=== PATIENT | female | born 1965 | race Caucasian/White ===

== ENCOUNTER 2020-08-14 07:00 | Inpatient (IN) | payer BC ==
[~2020-08-14] VITALS: Ht 167.6 cm; Wt 91.6 kg
[~2020-08-14 07:00] MED LIST: BUTA1CAP29 PO; PROM25SU32 RC
--- NOTE | 2020-08-14 07:28 | PHYS DOC ---
Past History Past Medical History: Arthritis, Constipation, GERD, High Cholesterol, Migraines Past Surgical History: Appendectomy, , Other Additional Past Surgical Histo: THYROIDECTOMY Alcohol Use: None Drug Use: None Adult General Chief Complaint Chief Complaint: MULTIPLE COMPLAINTS [facility] HPI Patient is a 55-year-old female who presents for symptomatic COVID-19 infection. She tested positive roughly 12 days ago. States she has been symptomatic since 2 days prior being tested. She reports initially having URI-like symptoms but this progressed to having nausea with several episodes of nonbloody nonbilious emesis since onset. Patient reports for past 48 hours she has been too nauseous to eat or drink, anytime she is attempted to do so it is it exacerbated her nausea and caused emesis. She reports having roughly 4 episodes of emesis in past 48-hour timeframe. She lives home alone and does not have any outside support assisting her at this time. She states she has been fatigued and with decreased p.o. intake past 48 hours has been more physically weak and dizzy especially with position changes than her typical baseline. She denies any falls but reports she has felt presyncopal and cannot take care of herself at present. Outside of COVID-19 infection, patient reports she has been afebrile, no other known ingestion, trauma, inciting event, no chest pain, no excessive shortness of breath, no productive cough, no urinary symptoms or other neurologic abnormalities reported Review of Systems Review of Systems Fourteen body systems of review of systems have been reviewed. See HPI for pertinent positives and negative responses, other chavis all other systems are negative, non-pertinent or non-contributory Allergies Allergies Allergies Coded Allergies Type Severity Reaction Last Updated Verified Opioids - Morphine Analogues Adverse Reaction Mild NAUSEA AND VOMITING 02/02/16 Yes Penicillins Adverse Reaction Unknown RASH 02/02/16 No Physical Exam Physical Exam Constitutional: Well developed, well nourished, no acute distress, non-toxic appearance. HENT: Normocephalic, atraumatic, bilateral external ears normal, oropharynx moist, no oral exudates, nose normal. Eyes: PERRLA, EOMI, conjunctiva normal, no discharge. Neck: Normal range of motion, no tenderness, supple, no stridor. Cardiovascular: Heart rate regular, sinus rhythm, no murmurs rubs or gallops Lungs & Thorax: Bilateral breath sounds clear to auscultation Abdomen: Bowel sounds normal, soft, no tenderness, no masses, no pulsatile masses. Nonsurgical abdomen, no peritoneal signs Skin: Warm, dry, no erythema, no rash. Back: No tenderness, no CVA tenderness. Extremities: No tenderness, no cyanosis, no clubbing, ROM intact, no edema. Neurologic: Alert and oriented X 3, grossly normal motor & sensory function, no focal deficits noted. Psychologic: Affect normal, judgement normal, mood normal. Current Patient Data Vital Signs Vital Signs Date Time Temp Pulse Resp B/P (MAP) Pulse Ox O2 Delivery O2 Flow Rate FiO2 08/14/20 07:16 99.0 98 18 101/66 (78) 92 Lab Results Laboratory Tests Test 08/14/20 07:43 08/14/20 11:30 White Blood Count 4.7 x10^3/uL (4.0-11.0) Red Blood Count 4.51 x10^6/uL (3.50-5.40) Hemoglobin 12.5 g/dL (12.0-15.5) Hematocrit 39.1 % (36.0-47.0) Mean Corpuscular Volume 87 fL (79-100) Mean Corpuscular Hemoglobin 28 pg (25-35) Mean Corpuscular Hemoglobin Concent 32 g/dL (31-37) Red Cell Distribution Width 13.1 % (11.5-14.5) Platelet Count 232 x10^3/uL (140-400) Neutrophils (%) (Auto) 69 % (31-73) Lymphocytes (%) (Auto) 23 % (24-48) Monocytes (%) (Auto) 8 % (0-9) Eosinophils (%) (Auto) 0 % (0-3) Basophils (%) (Auto) 0 % (0-3) Neutrophils # (Auto) 3.2 x10^3uL (1.8-7.7) Lymphocytes # (Auto) 1.1 x10^3/uL (1.0-4.8) Monocytes # (Auto) 0.4 x10^3/uL (0.0-1.1) Eosinophils # (Auto) 0.0 x10^3/uL (0.0-0.7) Basophils # (Auto) 0.0 x10^3/uL (0.0-0.2) Sodium Level 137 mmol/L (136-145) Potassium Level 3.3 mmol/L (3.5-5.1) Chloride Level 100 mmol/L (98-107) Carbon Dioxide Level 26 mmol/L (21-32) Anion Gap 11 (6-14) Blood Urea Nitrogen 12 mg/dL (7-20) Creatinine 1.0 mg/dL (0.6-1.0) Estimated GFR (Cockcroft-Gault) 57.8 BUN/Creatinine Ratio 12 (6-20) Glucose Level 95 mg/dL (70-99) Calcium Level 8.6 mg/dL (8.5-10.1) Total Bilirubin 0.3 mg/dL (0.2-1.0) Aspartate Amino Transf (AST/SGOT) 27 U/L (15-37) Alanine Aminotransferase (ALT/SGPT) 50 U/L (14-59) Alkaline Phosphatase 146 U/L (46-116) Troponin I Quantitative < 0.017 ng/mL (0-0.055) < 0.017 ng/mL (0-0.055) Total Protein 7.2 g/dL (6.4-8.2) Albumin 3.0 g/dL (3.4-5.0) Albumin/Globulin Ratio 0.7 (1.0-1.7) EKG EKG EKG ordered and interpreted by myself at 0830 hrs. as sinus rhythm at 78 bpm, prolonged QRS at 124 and prolonged QTC at 483 with all other intervals unremarka ble, left axis deviation, right bundle branch block present, no STEMI Radiology/Procedures Radiology/Procedures AP portable chest radiograph 08/14/2020 Clinical History: Shortness of breath. An AP erect portable digital radiograph of the chest was obtained. No previous studies are available for comparison. The cardiac silhouette is borderline enlarged. The thoracic aorta is mildly tortuous. Patchy areas of subsegmental atelectasis and/or infiltrate are seen involving both lower lobes, left greater than right. No pneumothorax or pleural effusion is seen. Degenerative changes are seen involving the thoracic spine and both shoulders. IMPRESSION: Patchy bilateral lower lobe subsegmental atelectasis and/or infiltrate. Electronically signed by: Amado Carrero MD (08/14/2020 8:01 AM) [id number] Heart Score HEART Score for Chest Pain: HEART Score for Chest Pain Response (Comments) Value History Slighlty/Non-Suspicious 0 ECG Normal 0 Age >45 - < 65 1 Risk Factors 1 or 2 Risk Factors 1 Troponin < Normal Limit 0 Total 2 Risk Factors: Risk Factors: DM, Current or recent (<one month) smoker, HTN, HLP, family history of CAD, obesity. Risk Scores: Risk Factors: DM, Current or recent (<one month) smoker, HTN, HLP, family history of CAD, obesity. Course & Med Decision Making Course & Med Decision Making Pertinent Labs and Imaging studies reviewed. (See chart for details) No obvious emergent and/or surgical pathology found today. With that said, patient appears to be symptomatic from COVID-19 infection. Patient unable to safely ambulate and care for self at home as a result and currently does not have regular care at home to assist through personal deficits. Unsafe to disposition home; at minimum plan admission for ongoing supportive care and IV fluid rehydration, home safety evaluation, social and physical therapy evaluations, possible placement Case discussed with Dr. Ravi who ultimately agreed for admission under his care at [facility] Patient updated on plan of care and was amenable for admission. All questions and concerns addressed prior to being stabilized and transported to [facility] for further inpatient management Dragon Disclaimer Dragon Disclaimer This electronic medical record was generated, in whole or in part, using a voice recognition dictation system. Departure Departure: Impression: Primary Impression: COVID-19 Additional Impressions: Nausea and vomiting Dizziness Dehydration Disposition: ADMITTED INPT THIS HOSP Admitting Physician: Sen Ravi Condition: STABLE Referrals: TOPHER MOORE MD (PCP) Problem Qualifiers SANDEEP BERMUDEZ DO Aug 14, 2020 07:28
[2020-08-14] MEDS ORDERED: IV NORMAL SALINE 1,000ML 1,000 ML IV SCH (07:30)
--- NOTE | 2020-08-14 08:03 | RAD ---
AP portable chest radiograph 08/14/2020 Clinical History: Shortness of breath. An AP erect portable digital radiograph of the chest was obtained. No previous studies are available for comparison. The cardiac silhouette is borderline enlarged. The thoracic aorta is mildly tortuous. Patchy areas of subsegmental atelectasis and/or infiltrate are see n involving both lower lobes, left greater than right. No pneumothorax or pleural effusion is seen. D egenerative changes are seen involving the thoracic spine and both shoulders. IMPRESSION: Patchy bilateral lower lobe subsegmental atelectasis and/or infiltrate. Electronically signed by: Amado Carrero MD (08/14/2020 8:01 AM) [id number]
[2020-08-14 08:13] LABS: BASO % 0 % (0-3); EOS % 0 % (0-3); HEMATOCRIT 39.1 % (36.0-47.0); HEMOGLOBIN 12.5 g/dL (12.0-15.5); LYMPH # 1.1 x10^3/uL (1.0-4.8); LYMPH % 23 % (24-48); MEAN CORPUSCULAR HEMOGLOBIN 28 pg (25-35); MEAN CORPUSCULAR HGB CONC 32 g/dL (31-37); MEAN CORPUSCULAR VOLUME 87 fL (79-100); MONO # 0.4 x10^3/uL (0.0-1.1); MONO % 8 % (0-9); NEUT # 3.2 x10^3uL (1.8-7.7); NEUT % 69 % (31-73); PLATELET COUNT 232 x10^3/uL (140-400); RED BLOOD COUNT 4.51 x10^6/uL (3.50-5.40); RED CELL DISTRIBUTION WIDTH 13.1 % (11.5-14.5); WHITE BLOOD COUNT 4.7 x10^3/uL (4.0-11.0)
[2020-08-14 08:18] LABS: CALCIUM 8.6 mg/dL (8.5-10.1); GFR 57.8; POTASSIUM 3.3 mmol/L (3.5-5.1)
[2020-08-14 08:32] LABS: ALBUMIN/GLOBULIN RATIO 0.7 (1.0-1.7); TOTAL BILIRUBIN 0.3 mg/dL (0.2-1.0); TOTAL PROTEIN 7.2 g/dL (6.4-8.2)
--- NOTE | 2020-08-14 08:52 | EKG ---
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
[2020-08-14] MEDS ORDERED: ACETAMINOPHEN 325 MG TABLET PO PRN (09:30)
[2020-08-14] MEDS ORDERED: ONDANSETRON PF 4 MG/2 ML VIAL. IVP PRN (09:30)
--- NOTE | 2020-08-14 11:10 | NUR ---
PATIENT ARRIVED TO UNIT VIA EMS. PATIENT IS STABEL AT TIME OF ADMISSION. PATIENTS VS OBTAINED AND PT IS ORIENTED TO ROOM AND PROCEEDURES. [facility]NET IS HERE FOR COVID 19 RELATED DEHYDRATION. PATIENT IS RESTING IN ROOM AT THIS TIME. DR GUZMAN NOTIFIED OF ADMISSION. WILL CONTINUE TO MONITOR.
[2020-08-14 11:42] VITALS: BP 108/70
[2020-08-14] MEDS ORDERED: VENL75TA2 PO (12:02)
[2020-08-14] MEDS ORDERED: ATOR10TA60 PO (12:02)
[2020-08-14] MEDS ORDERED: LIOT5TAB4 PO (12:02)
[2020-08-14] MEDS ORDERED: IPRA15SP NS (12:02)
[2020-08-14] MEDS ORDERED: PROM25SU33 RC (12:02)
[2020-08-14] MEDS ORDERED: ONDA4TAB12 PO (12:02)
[2020-08-14] MEDS ORDERED: TOPI50TA8 PO (12:02)
[2020-08-14] MEDS ORDERED: LEVO100T5 PO (12:02)
[2020-08-14] MEDS ORDERED: PROMETHAZINE 25 MG SUPP.RECT. RC PRN ×2 (12:15)
[2020-08-14] MEDS ORDERED: ONDANSETRON ODT 4 MG TAB.RAPDIS PO PRN (12:15)
[2020-08-14] MEDS ORDERED: IPRATROPIUM BROMIDE 0.06% NASAL SPRAY 15ML BOTTLE NS PRN (12:15)
--- NOTE | 2020-08-14 12:22 | HP ---
ADMIT DATE: 08/14/2020 HISTORY OF PRESENT ILLNESS: The patient is a 55-year-old female patient, who apparently was diagnosed with COVID-19 about 10-11 days ago. She apparently has lost the sense of taste and at times, had fever. She called her primary care physician and she was tested for COVID-19 and was found to be positive. She did very well for 6 days and over the last 5 days, she started having more problems with nausea, vomiting, anorexia as well as diarrhea. The most troubling symptom for her is stuffy nose with bloody discharge and a cough. She has not been able to eat and drink according and therefore, the patient was also dizzy this morning and therefore she came to the Emergency Room for evaluation and treatment. In the Emergency Room, the patient was found to have mild hypokalemia; however, most of other lab works were essentially unremarkable. Her chest x-ray showed that the cardiac silhouette is borderline enlarged. The thoracic aorta is mildly tortuous. Patchy areas of subsegmental atelectasis and/or infiltrate are seen involving both lower lobes, left greater than right, no pneumothorax or pleural effusion is seen. The patient was admitted for rehydration. PAST MEDICAL HISTORY: Significant for hypothyroidism, gastroesophageal reflux disease and migraine headache as well as depression. PAST SURGICAL HISTORY: Significant for thyroidectomy, , appendectomy and jaw surgery. ALLERGIES: She has no known drug allergies. SHE IS INTOLERANT TO OPIOIDS AND MORPHINE ANALOGS WELL PENICILLIN. MEDICATIONS: She is currently on Zyrtec 10 mg once a day, levothyroxine 100 mcg once a day. She is also on triiodothyronine, but does not know the dose. She is also on venlafaxine 75 mg once a day and topiramate, does not know the dose. FAMILY HISTORY: She has one brother younger and has multiple medical problems. Her sister is older and she is known to have breast cancer. Her father is alive and at the age of 81 has had multiple heart attacks. Mother is still alive at age of 80. SOCIAL HISTORY: She is , has one daughter. She does not smoke, drink alcohol or use recreational drugs. She is retired from the [employer]. REVIEW OF SYSTEMS: As per history of present illness. PHYSICAL EXAMINATION: GENERAL: On arrival to the Emergency Room, she looked well and was clearly in apparent respiratory distress. No pallor, jaundice, cyanosis or thyromegaly. No jugular venous distention. No lower limb edema. VITAL SIGNS: Her heart rate was 98, blood pressure was 101/66, temperature was 99, respiratory rate was 18, and oxygen saturation was 92% on room air. HEAD, EYES, EARS, NOSE AND THROAT: Showed normocephalic, atraumatic. NECK: Supple. CARDIAC: Normal first and second heart sounds. No gallop or murmur. CHEST: Shows central trachea, equal bilateral expansion, air entry, vesicular sounds with crepitation, mostly in the left side posteriorly. I could not appreciate any rhonchi. ABDOMEN: Distended, soft, nontender. NEUROLOGIC: She is awake, alert, responding appropriately. All her cranial nerves are intact. EXTREMITIES: She moves all extremities without difficulty. She ambulates without assistance or assistive devices. LABORATORY DATA: Her lab work on arrival showed a white cell count 4700. Her hemoglobin is 12.5, hematocrit was 39, MCV 87, and platelet count 232,000 with normal manual differential. Her chemistry showed serum sodium 137, potassium 3.3, chloride 100, bicarbonate 26, anion gap of 11, BUN 12, creatinine 1, estimated GFR was 58 mL per minute. Her glucose was 95. Total protein was 0.3. AST and ALT are normal. Alkaline phosphatase slightly elevated. Her total protein was 7.2, albumin was 3. ASSESSMENT AND PLAN: In summary, this is a 55-year-old female patient, who was diagnosed with COVID-19 about 12 days ago. She did well for about 6 days and over the last 5 days, her symptoms have started worsening. She has now community-acquired pneumonia versus COVID-19 pneumonia. Her other medical problems include obviously hypothyroidism, gastroesophageal reflux disease, and migraine headache. We will contact either the [facility] pharmacy or her daughter to get the rest of her medication. I will start her on IV antibiotic as well as IV fluid and dexamethasone and we will follow her closely. SIDDHARTHA GUZMAN MD DR: SARAHY/moreno JOB#: [id number] / [id number]
[2020-08-14] MEDS ORDERED: BUTALB/APAP/CAFEIN 50/325/40MG TABLET. PO PRN (12:45)
[2020-08-14] MEDS: DEXAMETHASONE SOD PHOS 10 MG/ML VIAL. IV SCH (13:19)
[2020-08-14] MEDS: POTASSIUM CL 40MEQ D5-0.45NACL 1,000 ML IV SCH (13:20)
[2020-08-14] MEDS ORDERED: AZITHROMYCIN 500 MG in IV NORMAL SALINE 250ML 250 ML IV ONE (14:00)
[2020-08-14 15:24] VITALS: BP 113/67
[2020-08-14 19:30] VITALS: BP 108/72
[2020-08-14] MEDS: TOPIRAMATE 25 MG TABLET. PO SCH (20:16)
[2020-08-14] MEDS: ACETAMINOPHEN/CODEINE 300/30MG TABLET PO SCH (20:17)
[2020-08-14 22:55] VITALS: BP 110/72
[2020-08-15] MEDS: POTASSIUM CL 40MEQ D5-0.45NACL 1,000 ML IV SCH ×2 (00:37→16:32)
[2020-08-15 02:00] VITALS: BP 117/78
[2020-08-15 05:30] VITALS: BP 108/69
[2020-08-15] MEDS: LEVOTHYROXINE 100 MCG TABLET PO SCH (05:36)
[2020-08-15] MEDS: ACETAMINOPHEN/CODEINE 300/30MG TABLET PO PRN ×2 (05:36→20:36)
[2020-08-15 05:38] LABS: HEMATOCRIT 40.4 % (36.0-47.0); HEMOGLOBIN 12.9 g/dL (12.0-15.5); RED BLOOD COUNT 4.59 x10^6/uL (3.50-5.40); RED CELL DISTRIBUTION WIDTH 13.5 % (11.5-14.5); WHITE BLOOD COUNT 2.8 x10^3/uL (4.0-11.0)
--- NOTE | 2020-08-15 05:45 | NUR ---
Pt awake in bed at change of shift. Pt A&Ox4, pleasant and cooperative. Pt c/o nonproductive cough and headache with coughing. Pt ate applesauce with HS medications. Pt slept great during shift. Pt without fever this shift. Pt up to bathroom twice to void. Pt stated that she feels a little better today.
[2020-08-15 05:53] LABS: ALBUMIN 3.1 g/dL (3.4-5.0); ALBUMIN/GLOBULIN RATIO 0.7 (1.0-1.7); CALCIUM 8.9 mg/dL (8.5-10.1); CREATININE 0.9 mg/dL (0.6-1.0); GFR 65.2; POTASSIUM 3.4 mmol/L (3.5-5.1); TOTAL BILIRUBIN 0.1 mg/dL (0.2-1.0); TOTAL PROTEIN 7.8 g/dL (6.4-8.2)
[2020-08-15] MEDS: DEXAMETHASONE SOD PHOS 10 MG/ML VIAL. IV SCH (07:50)
[2020-08-15] MEDS: TOPIRAMATE 25 MG TABLET. PO SCH ×2 (07:50→20:36)
[2020-08-15] MEDS: VENLAFAXINE XR 37.5 MG CAP.ER.24H. PO SCH (07:50)
[2020-08-15] MEDS: ATORVASTATIN CALCIUM 10 MG TABLET. PO SCH (07:51)
[2020-08-15] MEDS: LIOTHYRONINE 5 MCG TABLET. PO SCH (07:51)
[2020-08-15 11:04] VITALS: BP 119/73
[2020-08-15] MEDS: LACTOBACILLUS RHAMNOSUS GG 1 CAPSULE. PO SCH ×2 (12:17→20:35)
[2020-08-15] MEDS: ACETAMINOPHEN/CODEINE 300/30MG TABLET PO SCH (12:17)
--- NOTE | 2020-08-15 13:20 | PN ---
DATE: 08/15/2020 SUBJECTIVE: The patient is resting slightly propped up in bed, in no apparent respiratory distress. She is awake, alert, feeling generally slightly better. She has had no more nausea or vomiting, was able to keep some of her breakfast. No stuffy nose. She denied any chills, rigors or fever. PHYSICAL EXAMINATION: GENERAL: When I examined her this afternoon, she was resting slightly propped up in bed, in no apparent respiratory distress. She is pale, no jaundice, cyanosis or thyromegaly. No jugular venous distention or limb edema. VITAL SIGNS: Her heart rate was 70, blood pressure was 119/73, temperature was 98.3, respiratory rate was 20, and oxygen saturation was 96% on 1 liter of oxygen. HEAD, EYES, EARS, NOSE, AND THROAT: Showed normocephalic, atraumatic. NECK: Supple. HEART: Showed normal first and second heart sounds. No gallop, rub or murmur. CHEST: Clear to auscultation. No crepitation or rhonchi. ABDOMEN: Distended, soft, nontender. NEUROLOGIC: She was grossly intact. Her intake over the last 24 hours and output are incompletely recorded. LABORATORY DATA: Her lab work this morning showed a serum sodium 141, potassium 3.4, chloride 105, bicarbonate 24, anion gap of 12, BUN 11, creatinine 0.9, estimated GFR was 65 mL per minute. Her glucose was 147, calcium was 8.9. Total bilirubin, AST normal. ALT and alkaline phosphatase slightly elevated. Total protein was 7.8, albumin 3.1. Her white cell count was 2800, hemoglobin 13, hematocrit 40, MCV 88 and platelet count of 190,000. Her D-dimer was 1.06. ASSESSMENT: 1. COVID-19 pneumonia. 2. Acute hypoxic respiratory failure. OTHER MEDICAL PROBLEMS: Include: A. Hypothyroidism. B. Gastroesophageal reflux disease. C. Migraine headache. PLAN: To continue with IV antibiotic. Continue with dexamethasone. Continue all her other medications. Continue with IV fluids for the time being. I will repeat her lab works and hopefully, she is feeling much better. She can be discharged home to continue treatment as an outpatient. SIDDHARTHA GUZMAN MD DR: SARAHY/moreno JOB#: [id number] / [id number]
[2020-08-15 16:00] VITALS: BP 126/81
[2020-08-15] MEDS: AZITHROMYCIN 250 MG TABLET. PO SCH (16:31)
[2020-08-15] MEDS: ENOXAPARIN 40 MG/0.4 ML SYRINGE. SQ SCH (16:31)
[2020-08-15 20:00] VITALS: BP 109/73
[2020-08-16] MEDS: POTASSIUM CL 40MEQ D5-0.45NACL 1,000 ML IV SCH (05:21)
[2020-08-16] MEDS: LEVOTHYROXINE 100 MCG TABLET PO SCH (05:21)
[2020-08-16 05:38] VITALS: BP 109/76
[2020-08-16 06:48] LABS: HEMOGLOBIN 11.9 g/dL (12.0-15.5); RED BLOOD COUNT 4.29 x10^6/uL (3.50-5.40); RED CELL DISTRIBUTION WIDTH 12.8 % (11.5-14.5); WHITE BLOOD COUNT 5.7 x10^3/uL (4.0-11.0)
[2020-08-16 06:52] LABS: ALBUMIN 2.8 g/dL (3.4-5.0); ALBUMIN/GLOBULIN RATIO 0.7 (1.0-1.7); CALCIUM 8.7 mg/dL (8.5-10.1); CREATININE 0.7 mg/dL (0.6-1.0); GFR 87.2; POTASSIUM 3.7 mmol/L (3.5-5.1); TOTAL BILIRUBIN 0.2 mg/dL (0.2-1.0); TOTAL PROTEIN 6.9 g/dL (6.4-8.2)
[2020-08-16] MEDS: TOPIRAMATE 25 MG TABLET. PO SCH (08:52)
[2020-08-16] MEDS: ATORVASTATIN CALCIUM 10 MG TABLET. PO SCH (08:52)
[2020-08-16] MEDS: LIOTHYRONINE 5 MCG TABLET. PO SCH (08:52)
[2020-08-16] MEDS: VENLAFAXINE XR 37.5 MG CAP.ER.24H. PO SCH (08:53)
[2020-08-16] MEDS: DEXAMETHASONE SOD PHOS 10 MG/ML VIAL. IV SCH (08:53)
[2020-08-16] MEDS: LACTOBACILLUS RHAMNOSUS GG 1 CAPSULE. PO SCH (08:53)
[2020-08-16] MEDS: ACETAMINOPHEN/CODEINE 300/30MG TABLET PO PRN (08:55)
[2020-08-16 10:44] VITALS: BP 106/69
[2020-08-16] MEDS: ENOXAPARIN 40 MG/0.4 ML SYRINGE. SQ SCH (12:22)
[2020-08-16] MEDS: AZITHROMYCIN 250 MG TABLET. PO SCH (12:22)
[2020-08-16 14:59] VITALS: BP 117/72
--- NOTE | 2020-08-16 16:51 | NUR ---
PATIENT IS DISCHARGED HOME, PATIENT RECEIVED COVID SELF CARE INSTRUCTION, PRESCRIPTIONS FOR MEDICATIONS, PATIENT VERBALIZED UNDERSTANDING. PATIENT LEFT ROOM 124 VIA AMBULATION ACCOMP BY STAFF. PATIENT IS TAKEN HOME BY DAUGHTER VIA PERSONAL VEHICLE.
--- NOTE | 2020-08-16 20:51 | DS ---
DATE OF DISCHARGE: 08/16/2020 HOSPITAL COURSE: The patient is a 55-year-old female patient who was admitted with COVID-19 pneumonia and acute hypoxic respiratory failure. She was diagnosed actually about 10-11 days prior to admission to the hospital; and although she did well initially, over the 5 days prior to admission, her symptoms have worsened with nausea, vomiting, anorexia, as well as diarrhea. Her most troubling symptoms were stuffy nose with bloody discharge, cough, and generalized aches and pains. She was admitted and was started on IV antibiotic, as her chest x-ray showed that she has patchy bilateral lower lobe subsegmental atelectasis or infiltrate. She was initially requiring oxygen that gradually was weaned off and all her symptoms have largely subsided. She is on room air, maintaining her oxygen saturation at 95%. Her cough and all symptoms have subsided. She was able to walk all the way to the shower room and back without any difficulty. She did not desaturate; and as she remained hemodynamically stable and afebrile with an oxygen saturation of 95% on room air, a decision was made to discharge her home to continue treatment as an outpatient. PHYSICAL EXAMINATION: GENERAL: When I saw her this afternoon, she was resting slightly propped up in bed, in no apparent respiratory distress. No pallor, jaundice, cyanosis, or thyromegaly. No jugular venous distention. No lower limb edema. VITAL SIGNS: Her heart rate was 78, blood pressure was 117/72, temperature was 98.2, respiratory rate 20, and oxygen saturation was 95% on room air. HEAD, EYES, EARS, NOSE, AND THROAT: Normocephalic, atraumatic. NECK: Supple. HEART: Normal first and second heart sounds. No gallop, rub, or murmur. CHEST: Clear to auscultation. No crepitation or rhonchi. ABDOMEN: Distended, soft, nontender. NEUROLOGIC: She was grossly intact. LABORATORY DATA: Her lab work this morning showed a serum sodium of 138, potassium 3.7, chloride 105, bicarbonate 27, anion gap of 6, BUN 8, creatinine 0.7, estimated GFR was 87 mL per minute. Her glucose was 105, calcium was 8.7. Total bilirubin, AST, ALT were normal. Alkaline phosphatase slightly elevated. Total protein 6.9, albumin was 2.8. Her white cell count was 5700, hemoglobin 12, hematocrit 37, MCV 86 and platelet count 322,000. Her D-dimer was high at 1.06. DISCHARGE MEDICATIONS: She was discharged home to continue on azithromycin 250 mg once a day for 2 more days, cefdinir 300 mg twice a day for 7 more days. Continue with dexamethasone in a tapering fashion at 4 mg once a day for 3 days, then 2 mg once a day for 3 days. She should continue on atorvastatin 10 mg at bedtime, Fioricet 50/300/40 one capsule 4 times a day, ipratropium bromide one nasal spray b.i.d. for congestion, levothyroxine sodium 100 mcg once a day, liothyronine 5 mcg once a day, ondansetron 4 mg every 6 hours, Phenergan 25 mg rectally 4 times a day, promethazine 25 mg every 8 hours, topiramate 50 mg twice a day, and venlafaxine 75 mg once a day. FINAL DISCHARGE DIAGNOSES: 1. COVID-19 pneumonia. 2. Acute hypoxic respiratory failure. 3. Hypothyroidism. 4. Gastroesophageal reflux disease. 5. Migraine headache. SIDDHARTHA GUZMAN MD DR: SARAHY/moreno JOB#: [id number] / [id number]
== END 2020-08-16 16:45 | disposition home or self-care (01) | DRG 177 ==
LOC: ER 07:00 → ICU 09:20 → OBSVTOIN 10:37 → 1 SOUTH 08-16 06:15
PROVIDERS: ADMIT Internal Medicine; ATTEND Internal Medicine
DX: U07.1 COVID-19 (principal); J96.01 Acute respiratory failure with hypoxia; J12.89 Other viral pneumonia; J98.11 Atelectasis; E87.6 Hypokalemia; E03.9 Hypothyroidism, unspecified; K21.9 Gastro-esophageal reflux disease without esophagitis; G43.909 Migraine, unspecified, not intractable, without status migrainosus; E78.00 Pure hypercholesterolemia, unspecified; E86.0 Dehydration; F32.9 Major depressive disorder, single episode, unspecified; M19.90 Unspecified osteoarthritis, unspecified site; Z88.0 Allergy status to penicillin; Z88.8 Allergy status to other drugs, medicaments and biological substances; Z88.5 Allergy status to narcotic agent; Z90.49 Acquired absence of other specified parts of digestive tract; Z80.3 Family history of malignant neoplasm of breast
CPT/HCPCS: 36415; 71045; 80053; 84484; 85025; 85027; 85379; 93005; 96360; 99285; G0379; J0456; J0696; J1100; J1650; J2405; J7042; J7050; J7030

== ENCOUNTER 2021-01-14 14:12 | Emergency (ER) | payer BC ==
[~2021-01-14] VITALS: Ht 167.6 cm; Wt 96.8 kg
[~2021-01-14 14:12] MED LIST changes: +ATOR10TA60 PO; +IPRA15SP NS; +LEVO100T5 PO; +LIOT5TAB4 PO; +ONDA4TAB12 PO; +PROM25SU33 RC; +TOPI50TA8 PO; +VENL75TA2 PO
[2021-01-14] MEDS ORDERED: ASPIRIN CHEWABLE 81 MG TABLET. PO ONE (14:30)
[2021-01-14] MEDS ORDERED: IV NORMAL SALINE 1,000ML 1,000 ML IV ONE (14:30)
[2021-01-14] MEDS ORDERED: MORPHINE SULFATE 4 MG/ML DISP.SYRIN. IV PRN (14:30)
[2021-01-14] MEDS ORDERED: ONDANSETRON PF 4 MG/2 ML VIAL. IVP PRN (14:30)
[2021-01-14] MEDS ORDERED: ADENOSINE 6 MG/2 ML VIAL IV ONE ×2 (14:42)
[2021-01-14 14:47] LABS: BASO % 1 % (0-3); EOS # 0.1 x10^3/uL (0.0-0.7); EOS % 2 % (0-3); LYMPH # 2.6 x10^3/uL (1.0-4.8); LYMPH % 44 % (24-48); MEAN CORPUSCULAR HEMOGLOBIN 28 pg (25-35); MEAN CORPUSCULAR HGB CONC 33 g/dL (31-37); MEAN CORPUSCULAR VOLUME 86 fL (79-100); MONO # 0.4 x10^3/uL (0.0-1.1); MONO % 7 % (0-9); NEUT # 2.8 x10^3uL (1.8-7.7); NEUT % 47 % (31-73); PLATELET COUNT 277 x10^3/uL (140-400); RED BLOOD COUNT 4.66 x10^6/uL (3.50-5.40); RED CELL DISTRIBUTION WIDTH 13.4 % (11.5-14.5)
[2021-01-14 14:55] LABS: CALCIUM 9.4 mg/dL (8.5-10.1); CREATININE 0.8 mg/dL (0.6-1.0); GFR 74.7; POTASSIUM 3.6 mmol/L (3.5-5.1)
[2021-01-14 15:08] LABS: ALBUMIN 3.9 g/dL (3.4-5.0); ALBUMIN/GLOBULIN RATIO 1.2 (1.0-1.7); MAGNESIUM 2.2 mg/dL (1.8-2.4); TOTAL BILIRUBIN 0.2 mg/dL (0.2-1.0); TOTAL PROTEIN 7.2 g/dL (6.4-8.2)
--- NOTE | 2021-01-14 16:06 | PHYS DOC ---
Past History Past Medical History: Other Additional Past Medical Histor: SVT Past Surgical History: No Surgical History Additional Past Surgical Histo: THYROIDECTOMY Alcohol Use: None Drug Use: None General Adult EDM: Chief Complaint: CHEST PAIN HPI: HPI: Patient is a 55-year-old female who presents with heart palpitations. Patient states that she has a history of SVT. Patient denies shortness of breath, chest pain. Patient states "this happens all the time but it normally stops after a few minutes, this time it would not stop". "And currently being seen by a telemedicine physician for this problem and have an appointment again in March". Health history of SVT and thyroidectomy. Review of Systems: Review of Systems: Constitutional: Denies fever or chills Eyes: Denies change in visual acuity HENT: Denies nasal congestion or sore throat Respiratory: Denies cough or shortness of breath Cardiovascular: Denies chest pain or edema GI: Denies abdominal pain, nausea, vomiting, bloody stools or diarrhea : Denies dysuria Musculoskeletal: Denies back pain or joint pain Integument: Denies rash Neurologic: Denies headache, focal weakness or sensory changes Endocrine: Denies polyuria or polydipsia Lymphatic: Denies swollen glands Psychiatric: Denies depression or anxiety Current Medications: Current Meds: Current Medications Medications (Trade) Dose Ordered Sig/Marleny Start Time Stop Time Status Last Admin Dose Admin Adenosine (Adenocard) 6 mg STK-MED ONCE 01/14/21 14:42 01/14/21 14:43 DC Aspirin (Aspirin Chewable) 324 mg 1X ONCE 01/14/21 14:30 01/14/21 14:31 DC Morphine Sulfate (Morphine 4mg Syringe) 4 mg 1X PRN 01/14/21 14:30 UNV Ondansetron HCl (Zofran) 4 mg PRN 1X PRN 01/14/21 14:30 Sodium Chloride 1,000 ml @ 1,000 mls/hr 1X ONCE 01/14/21 14:30 01/14/21 15:29 DC Allergies: Allergies: Allergies Coded Allergies Type Severity Reaction Last Updated Verified Opioids - Morphine Analogues Adverse Reaction Mild NAUSEA AND VOMITING 02/02/16 Yes Penicillins Adverse Reaction Unknown RASH 02/02/16 No Physical Exam: PE: Constitutional: Well developed, well nourished, no acute distress, non-toxic appearance. [] HENT: Normocephalic, atraumatic, bilateral external ears normal, oropharynx moist, no oral exudates, nose normal. [] Eyes: PERRLA, EOMI, conjunctiva normal, no discharge. [] Neck: Normal range of motion, no tenderness, supple, no stridor. [] Cardiovascular:Heart rate SVT, no murmur [] Lungs & Thorax: Bilateral breath sounds clear to auscultation [] Abdomen: Bowel sounds normal, soft, no tenderness, no masses, no pulsatile masses. [] Skin: Warm, dry, no erythema, no rash. [] Back: No tenderness, no CVA tenderness. [] Extremities: No tenderness, no cyanosis, no clubbing, ROM intact, no edema. [] Neurologic: Alert and oriented X 3, normal motor function, normal sensory function, no focal deficits noted. [] Psychologic: Affect normal, judgement normal, mood normal. [] Current Patient Data: Labs: Laboratory Tests Test 01/14/21 14:35 White Blood Count 6.0 x10^3/uL (4.0-11.0) Red Blood Count 4.66 x10^6/uL (3.50-5.40) Hemoglobin 13.0 g/dL (12.0-15.5) Hematocrit 40.0 % (36.0-47.0) Mean Corpuscular Volume 86 fL (79-100) Mean Corpuscular Hemoglobin 28 pg (25-35) Mean Corpuscular Hemoglobin Concent 33 g/dL (31-37) Red Cell Distribution Width 13.4 % (11.5-14.5) Platelet Count 277 x10^3/uL (140-400) Neutrophils (%) (Auto) 47 % (31-73) Lymphocytes (%) (Auto) 44 % (24-48) Monocytes (%) (Auto) 7 % (0-9) Eosinophils (%) (Auto) 2 % (0-3) Basophils (%) (Auto) 1 % (0-3) Neutrophils # (Auto) 2.8 x10^3uL (1.8-7.7) Lymphocytes # (Auto) 2.6 x10^3/uL (1.0-4.8) Monocytes # (Auto) 0.4 x10^3/uL (0.0-1.1) Eosinophils # (Auto) 0.1 x10^3/uL (0.0-0.7) Basophils # (Auto) 0.0 x10^3/uL (0.0-0.2) Prothrombin Time 9.9 SEC (9.4-11.4) Prothrombin Time INR 1.0 (0.9-1.1) Sodium Level 144 mmol/L (136-145) Potassium Level 3.6 mmol/L (3.5-5.1) Chloride Level 107 mmol/L (98-107) Carbon Dioxide Level 25 mmol/L (21-32) Anion Gap 12 (6-14) Blood Urea Nitrogen 15 mg/dL (7-20) Creatinine 0.8 mg/dL (0.6-1.0) Estimated GFR (Cockcroft-Gault) 74.7 BUN/Creatinine Ratio 19 (6-20) Glucose Level 138 mg/dL (70-99) H Calcium Level 9.4 mg/dL (8.5-10.1) Magnesium Level 2.2 mg/dL (1.8-2.4) Total Bilirubin 0.2 mg/dL (0.2-1.0) Aspartate Amino Transferase (AST) 26 U/L (15-37) Alanine Aminotransferase (ALT) 42 U/L (14-59) Alkaline Phosphatase 115 U/L (46-116) Troponin I Quantitative < 0.017 ng/mL (0-0.055) VB-Dcp-H-Type Natriuretic Peptide 36 pg/mL (0-124) Total Protein 7.2 g/dL (6.4-8.2) Albumin 3.9 g/dL (3.4-5.0) Albumin/Globulin Ratio 1.2 (1.0-1.7) Vital Signs: Vital Signs Date Time Temp Pulse Resp B/P (MAP) Pulse Ox O2 Delivery O2 Flow Rate FiO2 01/14/21 15:03 97.2 93 16 117/68 (84) 98 Room Air EKG: EKG: [] Radiology/Procedures: Radiology/Procedures: [] Heart Score: C/O Chest Pain: No Risk Factors: Risk Factors: DM, Current or recent (<one month) smoker, HTN, HLP, family history of CAD, obesity. Risk Scores: Score 0 - 3: 2.5% MACE over next 6 weeks - Discharge Home Score 4 - 6: 20.3% MACE over next 6 weeks - Admit for Clinical Observation Score 7 - 10: 72.7% MACE over next 6 weeks - Early Invasive Strategies Course & Med Decision Making: Course & Med Decision Making Pertinent Labs and Imaging studies reviewed. (See chart for details) [] 55-year-old female presents with heart palpitations. Patient has a history of SVT and is currently seeing her telemedicine physician for this. Patient denied chest pain, shortness of breath, dizziness. Adenosine was ordered due to patient being in SVT. Prior to administering the medication patient converted back to sinus rhythm. I recommended admission but patient declined. Patient is hemodynamically stable, alert and oriented and able to ambulate on her own. Patient has strict instructions to follow-up with her telemedicine physician on Saturday. Strict return precautions given. Patient states that she understands and is appreciative. Dragon Disclaimer: Dragon Disclaimer: This electronic medical record was generated, in whole or in part, using a voice recognition dictation system. Departure Departure: Impression: Primary Impression: Heart palpitations Disposition: HOME / SELF CARE / HOMELESS Condition: STABLE Referrals: TOPHER MOORE MD (PCP) Patient Instructions: Chest Pain (Nonspecific) Additional Instructions: EMERGENCY DEPARTMENT GENERAL DISCHARGE INSTRUCTIONS Thank you for coming to [facility] (ED) today and trusting us with you care. We trust that you had a positivie experience in our Emergency Department. If you wish to speak to the department management, you may call the director at [phone]. YOUR FOLLOW UP INSTRUCTIONS ARE FOLLOWS: 1. Do you have a private Doctor? If you do not have a private doctor, please ask for a resource list of physicians or clinics that may be able to assist you with follow up care. 2. The Emergency Physician has interpreted your x-rays. The X-Ray specialist will also review them. If there is a change in the findings, you will be notified in 48 hours when at all possible. 3. A lab test or culture has been done, your results will be reviewed and you will be notified if you need a change in treatment. ADDITIONAL INSTRUCTIONS AND INFORMATION: 1. Your care today has been supervised by a physician who is specially trained in emergency care. Many problems require more than one evaluation for a complete diagnosis and treatment. We recommend that you schedule your follow up appointment as robert mmended to ensure complete treatment of you illness or injury. If you are unable to obtain follow up care and continue to have a problem, or if your condition worsens, we recommend that you return to the ED. 2. We are not able to safely determine your condition over the phone nor are we able to give sound medical advice over the phone. For these safety reasons, if you call for medical advice we will ask you to come to the ED for further evaluation. 3. If you have any questions regarding these discharge instructions please call the ED at [phone]. SAFETY INFORMATION: In the interest of safety, wellness, and injury prevention; we encourage you to wear your sealbelt, if you smoke; quite smoking, and we encourage family to use a protective helmet for bicycling and other sporting events that present an increased risk for head injury. IF YOUR SYMPTOMS WORSEN OR NEW SYMPTOMS DEVELOP, OR YOU HAVE CONCERNS ABOUT YOUR CONDITION; OR IF YOUR CONDITION WORSENS WHILE YOU ARE WAITING FOR YOUR FOLLOW UP APPOINTMENT; EITHER CONTACT YOUR PRIMARY CARE DOCTOR, THE PHYSICIAN WHOSE NAME AND NUMBER YOU WERE GIVEN, OR RETURN TO THE ED IMMEDIATELY. SUNNI KEENAN APRN January 14, 2021 16:06
[2021-01-14 16:11] VITALS: BP 134/70
--- NOTE | 2021-01-14 16:25 | EKG ---
[address] [address] Test Date: 2021-01-14 Test Time: 14:25:15 Pat Name: AGNES WHITTEN Department: Room: Gender: F [employer]: : 1965 Requested By: SUNNI KEENAN Order Number: [id number] Reading MD: Measurements Intervals [place] Rate: 140 P: ME: QRS: -71 QRSD: 132 T: -18 QT: 322 QTc: 495 Interpretive Statements SUPRAVENTRICULAR TACHYCARDIA RIGHT BUNDLE BRANCH BLOCK RVH WITH REPOLARIZATION ABNORMALITY ABNORMAL ECG RI6.02 No previous ECG available for comparison
--- NOTE | 2021-01-14 16:28 | EKG ---
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
== END 2021-01-14 16:10 | disposition home or self-care (01) ==
LOC: ER 14:12
DX: R00.2 Palpitations (principal); Z88.0 Allergy status to penicillin
CPT/HCPCS: 36415; 80053; 83735; 83880; 84484; 85025; 85610; 93005; 99285-25